=== PATIENT | male | born 1955 | race Caucasian/White ===

== ENCOUNTER 2017-02-16 21:07 | Emergency (ER) | payer SELFPAY ==
[~2017-02-16] VITALS: Ht 177.8 cm; Wt 68.0 kg
[~2017-02-16 21:07] MED LIST: CLON1TAB PO; CYCL10TA2 PO; Elavil PO; LEVE500T56 PO; OXYC-323 PO; QUET100T4 PO; [UNRECOGNIZED DRUG - OTHER]
[2017-02-16] MEDS ORDERED: ACETAMINOPHEN 325 MG TABLET. PO ONE (22:00)
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
[2017-02-16 23:28] VITALS: BP 155/81
--- NOTE | 2017-02-17 07:44 | RAD ---
Indication injury, pain. A single view of the chest was obtained. Comparison is made to a study December 16, 2013. The heart, pulmonary vessels and mediastinum appear normal. Lungs are clear. There is no pleural fluid or pneumothorax. The visualized bony structures appear grossly intact. IMPRESSION: Normal single view of the chest
== END 2017-02-16 23:44 | disposition home or self-care (01) ==
LOC: ER 21:07
DX: S06.0X1A Concussion with loss of consciousness of 30 minutes or less, initial encounter (principal); S20.219A Contusion of unspecified front wall of thorax, initial encounter; F31.9 Bipolar disorder, unspecified; G89.29 Other chronic pain; E11.9 Type 2 diabetes mellitus without complications; I10 Essential (primary) hypertension; F20.9 Schizophrenia, unspecified; F12.10 Cannabis abuse, uncomplicated; Z91.013 Allergy to seafood; Z88.5 Allergy status to narcotic agent; Y04.0XXA Assault by unarmed brawl or fight, initial encounter; Y93.89 Activity, other specified; Y92.89 Other specified places as the place of occurrence of the external cause; Y99.8 Other external cause status
CPT/HCPCS: 70450; 71010; 99284-25

== ENCOUNTER 2017-03-22 22:30 | Inpatient (IN) | payer SELFPAY ==
[~2017-03-22] VITALS: Ht 175.3 cm; Wt 61.2 kg
[~2017-03-22 22:30] MED LIST changes: +LIDOCAINE (700MG/PATCH) PATCH. TD ONE
[2017-03-23] MEDS ORDERED: ACETAMINOPHEN 325 MG TABLET. PO PRN ×2 (00:30→10:45)
[2017-03-23] MEDS ORDERED: ONDANSETRON PF 4 MG/2 ML VIAL. IV PRN ×2 (00:30→10:45)
[2017-03-23] MEDS ORDERED: KETOROLAC 15 MG/ML VIAL. IV PRN (00:30)
[2017-03-23 00:36] LABS: BASO # 0.1 x10^3/uL (0.0-0.2); BASO % 1 % (0-3); EOS % 2 % (0-3); HEMATOCRIT 45.6 % (39.0-53.0); HEMOGLOBIN 15.5 g/dL (13.0-17.5); LYMPH # 2.7 x10^3/uL (1.0-4.8); LYMPH % 34 % (24-48); MEAN CORPUSCULAR HEMOGLOBIN 34 pg (25-35); MEAN CORPUSCULAR HGB CONC 34 g/dL (31-37); MEAN CORPUSCULAR VOLUME 100 fL (79-100); MONO % 9 % (0-9); NEUT % 54 % (31-73); PLATELET COUNT 166 x10^3/uL (140-400); RED BLOOD COUNT 4.59 x10^6/uL (4.30-5.70); RED CELL DISTRIBUTION WIDTH 13.6 % (11.5-14.5); WHITE BLOOD COUNT 7.9 x10^3/uL (4.0-11.0)
[2017-03-23 00:46] LABS: CALCIUM 8.1 mg/dL (8.5-10.1); CREATININE 0.7 mg/dL (0.7-1.3); GFR 115.4; POTASSIUM 3.2 mmol/L (3.5-5.1)
[2017-03-23] MEDS ORDERED: MULTIVIT INFUSN,ADULT 4,VIT K 10 ML, THIAMINE 100 MG, FOLIC ACID 1 MG in IV NORMAL SALI... IV ONE (01:00)
[2017-03-23] MEDS: chlordiazePOXIDE HCL 25 MG CAPSULE PO SCH ×4 (01:17→20:05)
[2017-03-23] MEDS: fentaNYL PF VIAL 100 MCG/2 ML VIAL IV PRN ×2 (01:37→08:17)
--- NOTE | 2017-03-23 01:39 | ED.ADGEN ---
Past Medical History Past Medical History: Bipolar, Diabetes-Type II, Hypertension, Seizure, Schizophrenia, Other Additional Past Medical Histor: CHRONIC PAIN, DEGENERATIVE DISC DISEASE,hep c + schizoeffective,bipolar 2 Past Surgical History: Tonsillectomy Additional Past Surgical Histo: right arm fracture repair, borderline personality Alcohol Use: Occasionally Additional Information: DRANK X 3 BEERS TONIGHT Drug Use: Marijuana Adult General Chief Complaint Chief Complaint: GENERALIZED BODY ACHES HPI HPI Patient is a 61 year old man, history of type 2 diabetes mellitus, hepatitis C , schizoaffective disorder, who presents emergency Department with complaint of increasing shortness of breath and worsening left-sided rib pain. Patient states that he had a fall 3 days ago, and was evaluated in [place], and was told that he had 3 rib fractures. He states he was given Percocet for pain, but does use of this medication and is feeling worsens that occurred. He states he was also given incentive sprout through which he has not been using. Patient states that he has been drinking beer to alleviate his pain. He has an odor of alcohol, and examination is consistent with intoxication, although he is oriented 3, and is answering all questions appropriately. He denies any new injuries or complaints. States he is experiencing sharp shooting pain along the entire left side of his chest, worse with motion and with deep inspiration. Denies any cough, denies any fevers or chills. States he takes daily aspirin, no other blood thinners. He states he did take his blood pressure medication today for coming to the ED. Denies any other drugs or cigarettes. He states he does not drink daily, only drink today because he was having pain, states that he drank "2 beers". Review of Systems Review of Systems Constitutional: Denies fever or chills. [] Eyes: Denies change in visual acuity. [] HENT: Denies nasal congestion or sore throat. [] Respiratory: Denies cough, shortness of breath, left-sided chest pain. Cardiovascular: Left-sided chest pain, no edema. GI: Denies abdominal pain, nausea, vomiting, bloody stools or diarrhea. [] : Denies dysuria. [] Musculoskeletal: Denies back pain or joint pain. [] Integument: Denies rash. [] Neurologic: Denies headache, focal weakness or sensory changes. [] Endocrine: Denies polyuria or polydipsia. [] Lymphatic: Denies swollen glands. [] Psychiatric: Denies depression or anxiety. [] Current Medications Current Medications Current Medications Medications (Trade) Dose Ordered Sig/Niki Start Time Stop Time Status Last Admin Dose Admin Lidocaine (Lidoderm) 1 patch 1X ONCE 03/22/17 00:00 03/22/17 23:40 DC 03/23/17 00:03 1 PATCH Allergies Allergies Allergies Coded Allergies Type Severity Reaction Last Updated Verified codeine Allergy Intermediate 04/21/16 Yes shellfish derived Allergy Intermediate 04/21/16 Yes Physical Exam Physical Exam Constitutional: Well developed, well nourished, no acute distress, non-toxic appearance. [] HENT: Normocephalic, atraumatic, bilateral external ears normal, oropharynx moist, no oral exudates, nose normal. [] Eyes: PERRLA, EOMI, conjunctiva normal, no discharge. [] Neck: Normal range of motion, no tenderness, supple, no stridor. [] Cardiovascular:Heart rate regular rhythm, no murmur, S1, S2, rubs or gallops. [] Lungs & Thorax: Bilateral breath sounds clear to auscultation, no wheezing, rhonchi, rales. Patient with chest wall tenderness and crepitus noted in the left lateral rib cage, ribs 5 through 7, no flail chest, no sternal signs of trauma. [] Abdomen: Bowel sounds normal, soft, no tenderness, no rebound, rigidity, no guarding, no masses, no pulsatile masses. [] Skin: Warm, dry, no erythema, no rash. [] Back: No tenderness, no CVA tenderness. [] Extremities: No tenderness, no cyanosis, no clubbing, ROM intact, no edema. Negative Homans sign. [] Neurologic: Alert and oriented X 3, normal motor function, normal sensory function, no focal deficits noted. [] Psychologic: Affect normal, judgement normal, mood normal. [] Current Patient Data Vital Signs Vital Signs Date Time Temp Pulse Resp B/P Pulse Ox O2 Delivery O2 Flow Rate FiO2 03/22/17 23:38 104 20 134/97 96 Room Air 03/22/17 22:44 97.7 97.7 EKG EKG EC: Sinus tachycardia, heart rate 101 bpm, upright axis, QTC of 455, VT 164, QRS of 96, contour normality is noted in the anterior lateral leads, evidence of left ventricular hypertrophy noted, moderate baseline artifact noted , abnormal ECG, does not meet STEMI criteria. As interpreted by me. [] Radiology/Procedures Radiology/Procedures Chest x-ray: Left ribs and PA chest: Normal cardiopulmonary silhouette, no infiltrates, no effusions, no soft tissue abnormalities, no pneumothorax. Patient noted to have minimally displaced fractures of the lateral ribs 5,6 and 7 in the left chest. No other abnormalities identified. As interpreted by me. [] Course & Med Decision Making Course & Med Decision Making Pertinent Labs and Imaging studies reviewed. (See chart for details) Patient received Lidoderm patch in the emergency department, along with incentive spirometry instruction, banana bag, x-ray reveals minimally displaced rib fractures of ribs 5, 6, and 7 on the left. I did discuss these findings with patient, there is no signs of underlying lung damage. Patient states that he is unable to controls pain at home, as stated he is intoxicated in the emergency department, although he is answering question is appropriate, and do a safety concerns for the patient. After discussion, patient states that he would like to be admitted to the hospital for medical management of his pain. I did discuss findings as above with Dr. Gaun of internal medicine, patient accepted his service as a full admission to the medical surgical floor, plan for administration of analgesia, and evaluation by PT OT, incentive spirometry. Bridge orders entered per discussion. Patient transported to the medical surgical floor without issue. Dragon Disclaimer Dragon Disclaimer This electronic medical record was generated, in whole or in part, using a voice recognition dictation system. Departure Impression: Primary Impression: Multiple fractures of ribs of left side Additional Impressions: Intractable pain Alcohol intoxication Disposition: ADMITTED INPATIENT Admitting Physician: Kennedy Guan Condition: IMPROVED Problem Qualifiers ABY AYERS DO March 23, 2017 01:39
[2017-03-23 01:40] VITALS: BP 138/88
[2017-03-23] MEDS ORDERED: DEXTROSE 50% 25 GM / 50ML DISP.SYRIN. IV PRN (02:00)
--- NOTE | 2017-03-23 06:24 | ACF ---
Admission Forms Criteria RIB FRACTURE Clinical Indications for Admission to Inpatient Care (Place 'X' for any and all applicable criteria): Admission is indicated for ANY ONE of the following (1)(2)(3)(4): [X]I. 3 or more traumatic rib fractures [ ]II. Flail chest [A](5) [ ]III. Inpatient admission required rather than observation care (Also use Rib Fracture: Observation Care Criteria as appropriate) because of ANY ONE of the following: [ ]1) Pain inhibiting ability to cough or clear airway that is severe or persistent and requires inpatient treatment (eg, frequent parenteral narcotics) [ ]2) Injury (eg, intra-abdominal, vascular, neurologic, pneumothorax) identified that requires inpatient care [ ]3) Rib fracture causing exacerbation of comorbid illness that is severe or persistent (eg, COPD, congestive heart failure) [ ]4) Supplemental oxygen or respiratory treatments for over 24 hours that is performable only in acute inpatient setting [ ]5) Epidural analgesia (6) [ ]6) Immediate inpatient surgery [ ]7) Other condition, treatment or monitoring requiring inpatient admission Extended stay beyond goal length of stay may be needed for (Use Intensive, Intermediate and Telemetry Care Criteria) (1)(15) [ ]a) Flail chest [ ]b) Respiratory insufficiency [ ]c) Concomitant trauma to visceral or thoracic organs [ ]d) Need for chest tube drainage [ ]e) Reduced vital capacity (eg, less than 1.4 liters or 55% predicted) [ ]f) Active comorbidities The original [employer] content created by [employer] has been revised. The portions of the content which have been revised are identified through the use of italic text or in bold, and [facility] has neither reviewed nor approved the modified material. All other unmodified content is copyright [employer]. Please see references footnoted in the original [facility] edition 2016 Admission Criteria Met?: Yes HERO ISAAC March 23, 2017 06:24
--- NOTE | 2017-03-23 06:31 | EKG ---
[facility] [address] [place] [address] Test Date: 2017-03-23 Test Time: 00:29:14 Pat Name: GREG FOY Department: Room: 519 1 Gender: M [employer] Training Manager: : 1955 Requested By: ABY AYERS Order Number: [id number] Reading MD: Edouard Mei Measurements Intervals [place] Rate: 101 P: 64 OR: 164 QRS: 7 QRSD: 96 T: 31 QT: 350 QTc: 455 Interpretive Statements SINUS TACHYCARDIA Electronically Signed On 03-24-2017 11:36:40 CDT by Edouard Mei
[2017-03-23 07:00] VITALS: BP 139/87
--- NOTE | 2017-03-23 07:50 | RAD ---
Indication pain. An AP view of the chest was obtained as well as multiple films targeted to left ribs. The chest is compared to an examination 02/16/2017. The heart and pulmonary vessels appear normal. The lungs are clear of acute infiltrates. There is no pleural fluid or pneumothorax. Films targeted to left ribs demonstrate acute and traumatic slightly angulated fractures of the left sixth seventh and eighth ribs. IMPRESSION: Acute, traumatic, mildly angulated fractures of the left sixth, seventh and eighth ribs.
[2017-03-23] MEDS: INSULIN ASPART 300 UNITS/3 ML INSULN.PEN SQ SCH ×3 (08:07→17:00)
[2017-03-23] MEDS: LIDOCAINE (700MG/PATCH) PATCH. TD SCH (08:16)
[2017-03-23 11:00] VITALS: BP 142/92
[2017-03-23] MEDS: levETIRAcetam 500 MG TABLET PO SCH ×2 (11:22→21:29)
[2017-03-23] MEDS: clonazePAM 1 MG TABLET PO SCH ×2 (11:22→21:29)
[2017-03-23] MEDS: oxyCODONE/APAP 5/325 1 TAB TABLET PO PRN ×2 (11:22→20:05)
[2017-03-23] MEDS: CYCLOBENZAPRINE 10 MG TABLET. PO SCH ×2 (13:39→21:29)
[2017-03-23] MEDS ORDERED: MORPHINE SULFATE 2 MG/ML DISP.SYRIN. IV PRN (14:00)
[2017-03-23] MEDS ORDERED: oxyCODONE/APAP 10/325 1 TAB TABLET PO PRN (14:00)
--- NOTE | 2017-03-23 14:04 | PDOC1 ---
History and Physical Date of Admission Date of Admission 03/23/17 Identification/Chief Complaint Chief Complaint left chest pain Problems: Source Source: Chart review, Patient History of Present Illness History of Present Illness 61yo M, schizophrenia, alcoholism possibly, smoker, comes for left chest pain. He fell 2 days ago, went to a hosp in [place] and was found left side rib fx, dced from ER with percocet which helped him. He came here is because he ran out of pain meds and didnot call PCP otherwise no fever, chills, +mild cough makes chest pain worse. drank yesterday for the chest pain relieve. c/o left should pain now. can move left arm tho. Past Medical History Past Medical History al History: Bipolar, Diabetes-Type II, Hypertension, Seizure, Schizophrenia, Other Additional Past Medical Histor: CHRONIC PAIN, DEGENERATIVE DISC DISEASE,hep c + schizoeffective,bipolar 2 Past Surgical History: Tonsillectomy Cardiovascular: HTN Psych: Bipolar, Schizophrenia Endocrine: Diabetes Past Surgical History Past Surgical History Tonsillectomy Additional Past Surgical Histo: right arm fracture repair, borderline personality Family History Family History: No Significant Social History Smoke: <1 pack per day ALCOHOL: social Drugs: Marijuana Current Problem List Problem List Problems Medical Problems: (1) Alcohol intoxication Status: Acute (2) Intractable pain Status: Acute (3) Multiple fractures of ribs of left side Status: Acute Current Medications Current Medications Current Medications Medications (Trade) Dose Ordered Sig/Niki Start Time Stop Time Status Last Admin Dose Admin Acetaminophen (Tylenol) 650 mg PRN Q6HRS PRN 03/23/17 10:45 Acetaminophen 650 mg 650 mg PRN Q4HRS PRN 03/23/17 00:30 03/23/17 10:37 DC Chlordiazepoxide (Librium) 25 mg Q6H 03/23/17 01:00 03/24/17 07:01 03/23/17 13:39 25 MG Clonazepam (Klonopin) 1 mg BID 03/23/17 11:30 03/23/17 11:22 1 MG Cyclobenzaprine HCl (Flexeril) 10 mg TID 03/23/17 14:00 03/23/17 13:39 10 MG Dextrose (Dextrose 50%-Water Syringe) 12.5 gm PRN Q15MIN PRN 03/23/17 02:00 Fentanyl Citrate (Fentanyl 2ml Vial) 50 mcg PRN Q2HR PRN 03/23/17 00:30 03/24/17 00:29 03/23/17 08:17 50 MCG Insulin Aspart (Novolog) 0-5 UNITS TIDWMEALS 03/23/17 08:00 Ketorolac Tromethamine (Toradol) 10 mg PRN Q8HRS PRN 03/23/17 00:30 03/28/17 00:29 03/23/17 09:36 10 MG Levetiracetam (Keppra) 500 mg BID 03/23/17 11:00 03/23/17 11:22 500 MG Lidocaine (Lidoderm) 1 patch DAILY 03/23/17 09:00 03/23/17 08:16 1 PATCH Multivitamins/ Thiamine HCl/ Folic Acid/Sodium Chloride (Infuvite Adult/ Iv Sodium Chloride 0.9% 1000ml Bag) 1,011.2 ml @ 100 mls/ hr 1X ONCE 03/23/17 01:00 03/23/17 11:06 DC 03/23/17 01:17 100 MLS/HR Ondansetron HCl (Zofran) 4 mg PRN Q6HRS PRN 03/23/17 10:45 Oxycodone/ Acetaminophen (Percocet 5/325) 1 tab PRN Q6HRS PRN 03/23/17 10:45 03/23/17 11:22 1 TAB Allergies Allergies Allergies Coded Allergies Type Severity Reaction Last Updated Verified codeine Allergy Intermediate 04/21/16 Yes shellfish derived Allergy Intermediate 04/21/16 Yes Iodine and Iodide Containing Produc Allergy Unknown 03/23/17 Yes ROS Review of System CONSTITUTIONAL: No fever or chills EYES: No recent changes SKIN: No rash or itching CARDIOVASCULAR: No chest pain, syncope, palpitations, or edema RESPIRATORY: No SOB or cough GASTROINTESTINAL: No nausea, vomiting or abdominal pain NEUROLOGICAL: No headaches or weakness ENDOCRINE: No cold or heat intolerance GENITOURINARY: No urgency or frequency of urination MUSCULOSKELETAL: No back pain or joint pain LYMPHATICS: No enlarged lymph nodes PSYCHIATRIC: No anxiety or depression Physical Exam Physical Exam GEN.: No apparent distress. Alert and oriented. anxious HEENT: Head is normocephalic, atraumatic NECK: Supple. LUNGS: Clear to auscultation. left chest wall tenderness HEART: RRR, S1, S2 present. Peripheral pulses intact ABDOMEN: Soft, nontender. Positive bowel sounds. EXTREMITIES: Without any cyanosis. NEUROLOGIC: Normal speech, normal tone PSYCHIATRIC: Normal affect, normal mood. SKIN: No ulcerations Vitals Vitals Vital Signs Date Time Temp Pulse Resp B/P Pulse Ox O2 Delivery O2 Flow Rate FiO2 03/23/17 12:22 20 95 Room Air 03/23/17 11:00 97.5 88 142/92 97.5 Labs Labs Laboratory Tests Test 03/23/17 00:25 03/23/17 07:43 03/23/17 10:23 White Blood Count 7.9x10^3/uL (4.0-11.0) Red Blood Count 4.59x10^6/uL (4.30-5.70) Hemoglobin 15.5g/dL (13.0-17.5) Hematocrit 45.6% (39.0-53.0) Mean Corpuscular Volume 100fL (79-100) Mean Corpuscular Hemoglobin 34pg (25-35) Mean Corpuscular Hemoglobin Concent 34g/dL (31-37) Red Cell Distribution Width 13.6% (11.5-14.5) Platelet Count 166x10^3/uL (140-400) Neutrophils (%) (Auto) 54% (31-73) Lymphocytes (%) (Auto) 34% (24-48) Monocytes (%) (Auto) 9% (0-9) Eosinophils (%) (Auto) 2% (0-3) Basophils (%) (Auto) 1% (0-3) Neutrophils # (Auto) 4.3x10^3uL (1.8-7.7) Lymphocytes # (Auto) 2.7x10^3/uL (1.0-4.8) Monocytes # (Auto) 0.7x10^3/uL (0.0-1.1) Eosinophils # (Auto) 0.1x10^3/uL (0.0-0.7) Basophils # (Auto) 0.1x10^3/uL (0.0-0.2) Sodium Level 138mmol/L (136-145) Potassium Level 3.2mmol/L (3.5-5.1) Chloride Level 105mmol/L (98-107) Carbon Dioxide Level 22mmol/L (21-32) Anion Gap 11 (6-14) Blood Urea Nitrogen 13mg/dL (8-26) Creatinine 0.7mg/dL (0.7-1.3) Estimated GFR (Cockcroft-Gault) 115.4 Glucose Level 146mg/dL (70-99) Calcium Level 8.1mg/dL (8.5-10.1) Glucose (Fingerstick) 99mg/dL (70-99) 98mg/dL (70-99) Laboratory Tests Test 03/23/17 00:25 03/23/17 07:43 03/23/17 10:23 White Blood Count 7.9x10^3/uL (4.0-11.0) Red Blood Count 4.59x10^6/uL (4.30-5.70) Hemoglobin 15.5g/dL (13.0-17.5) Hematocrit 45.6% (39.0-53.0) Mean Corpuscular Volume 100fL (79-100) Mean Corpuscular Hemoglobin 34pg (25-35) Mean Corpuscular Hemoglobin Concent 34g/dL (31-37) Red Cell Distribution Width 13.6% (11.5-14.5) Platelet Count 166x10^3/uL (140-400) Neutrophils (%) (Auto) 54% (31-73) Lymphocytes (%) (Auto) 34% (24-48) Monocytes (%) (Auto) 9% (0-9) Eosinophils (%) (Auto) 2% (0-3) Basophils (%) (Auto) 1% (0-3) Neutrophils # (Auto) 4.3x10^3uL (1.8-7.7) Lymphocytes # (Auto) 2.7x10^3/uL (1.0-4.8) Monocytes # (Auto) 0.7x10^3/uL (0.0-1.1) Eosinophils # (Auto) 0.1x10^3/uL (0.0-0.7) Basophils # (Auto) 0.1x10^3/uL (0.0-0.2) Sodium Level 138mmol/L (136-145) Potassium Level 3.2mmol/L (3.5-5.1) Chloride Level 105mmol/L (98-107) Carbon Dioxide Level 22mmol/L (21-32) Anion Gap 11 (6-14) Blood Urea Nitrogen 13mg/dL (8-26) Creatinine 0.7mg/dL (0.7-1.3) Estimated GFR (Cockcroft-Gault) 115.4 Glucose Level 146mg/dL (70-99) Calcium Level 8.1mg/dL (8.5-10.1) Glucose (Fingerstick) 99mg/dL (70-99) 98mg/dL (70-99) VTE Prophylaxis Ordered VTE Prophylaxis Devices: Yes VTE Pharmacological Prophylaxi: Yes Assessment/Plan Assessment/Plan 1. left chest pain with traumatic left 6, 7, 8th rib fx from all 2. dm2 3. htn 4. h/o seizure 5. schizophrenia 6. bipolar 2 7. hypokalemia 8. drug abuse with marijuana plan: dr mccauley consult pain control with percocet cont home meds jaz Hernandez dc tmr check shoulder XR dvt ppx RAJIV PURCELL MD March 23, 2017 14:04
[2017-03-23 15:00] VITALS: BP 153/99
[2017-03-23] MEDS ORDERED: ENOXAPARIN 40 MG/0.4 ML SYRINGE. SQ SCH (15:00)
[2017-03-23] MEDS ORDERED: POTASSIUM CHLORIDE 20 MEQ TABLET.ER. PO ONE (15:45)
--- NOTE | 2017-03-23 15:58 | RAD ---
Indication pain associated with a fall. Internally and externally rotated views of the left shoulder were obtained as well as a Y view. No acute or significant bony finding is seen. There are some very mild degenerative changes at the AC joint.
[2017-03-23 19:45] VITALS: BP 142/96
[2017-03-23 23:59] VITALS: BP 149/94
[2017-03-24] MEDS: chlordiazePOXIDE HCL 25 MG CAPSULE PO SCH ×2 (00:10→05:52)
[2017-03-24] MEDS: oxyCODONE/APAP 5/325 1 TAB TABLET PO PRN (02:04)
[2017-03-24 03:15] VITALS: BP 146/89
--- NOTE | 2017-03-24 03:28 | CONS ---
DATE OF CONSULTATION: 03/23/2017 ATTENDING PHYSICIAN: Kennedy Guan DO The patient was seen at the request of Dr. Larsen for rehab evaluation. HISTORY OF PRESENT ILLNESS: This is a 61-year-old right-handed male with history of schizophrenia, chronic ethanol abuse, possibly smoker. 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 He was seen in a hospital in [place] where he was found with rib fractures and was discharged to home with Percocet 12 of them and he took about 1 every 4 hours and admitted to the Emergency Room at this medical center this morning. The patient is on disability. PAST MEDICAL AND SURGICAL HISTORY: The patient is also with known prediabetes, bipolar disorder, hypertension, seizure disorder, chronic pain from degenerative disk disease, hepatitis C positive, schizoaffective bipolar disorder, status post tonsillectomy. The patient also had surgery for right arm fracture. ALLERGIES: The patient is known ALLERGIC TO IODINE AND IODIDE-CONTAINING PRODUCTS, CODEINE, SHELLFISH DERIVED. SOCIAL HISTORY: The patient also has used alcoholic beverages socially, and since this injury, he has been drinking alcoholic beverages to control the pain and he also used marijuana in the past. He smokes less than 1 pack per day. IMAGING STUDIES: Since admission, he had chest x-ray and shoulder x-ray and rib cage x-rays, which revealed acute traumatic mildly angulated fractures of left 6th, 7th and 8th ribs and x-ray of the lungs failed to reveal any acute abnormality. X-ray of shoulder, left, revealed very mild degenerative changes at the AC joint. REVIEW OF SYSTEMS: The patient denies any tingling or numbness in the extremities. He admits some soreness over left side of his neck and upper back area. The patient denies any trouble with his bowel or bladder control. PHYSICAL EXAMINATION: Today revealed a middle-aged male. He is alert and oriented to time, place, person and circumstance and follows commands appropriately. He had pain-free range of motion of his cervical and lumbar spine. He had tenderness to palpation over left upper trapezius on the posterior shoulder girdle muscles and over left upper thoracic paraspinal muscles. He had 5/5 grade muscle strength in his extremities. Deep tendon reflexes are 1 to 2+ and symmetrical with absent right ankle jerks and he had equal perception of touch and pinprick sensation bilaterally. He is independent with bed mobility and transfers. He can even walk on his tiptoes, and he had some difficulty to try to walk on a straight line, one foot in front of the other. He had pain-free range of motion of all four extremity joints. He had some limitation of thoracic spine lateral bending to the right side. No significant paraspinal muscle spasm was noted at this time. No tenderness to palpation over cervical spine itself. ASSESSMENT: A middle-aged male with fall and sprained thoracic spine and left 6th, 7th and 8th ribs in a patient with known hypertension, prediabetes mellitus, schizophrenia, alcoholism, tobacco use, chronic pain from degenerative disk disease, hepatitis C positive, schizoaffective disorder. RECOMMENDATIONS: Agree with present pain medication and also used ice packs, home when medically stable with outpatient followup. Dr. Larsen, I appreciate asking me to participate in the care of this interesting patient. I will be glad to follow him with you as needed for his rehabilitation. TEETEE MITCHELL MD DR: ANN/douglas JOB#: [id number] / [id number]
[2017-03-24 04:26] LABS: CALCIUM 7.9 mg/dL (8.5-10.1); CREATININE 0.8 mg/dL (0.7-1.3); GFR 98.9; POTASSIUM 3.3 mmol/L (3.5-5.1)
[2017-03-24 04:28] LABS: BASO # 0.1 x10^3/uL (0.0-0.2); BASO % 1 % (0-3); EOS % 4 % (0-3); HEMATOCRIT 42.3 % (39.0-53.0); HEMOGLOBIN 14.4 g/dL (13.0-17.5); LYMPH # 2.5 x10^3/uL (1.0-4.8); LYMPH % 32 % (24-48); MEAN CORPUSCULAR HEMOGLOBIN 34 pg (25-35); MEAN CORPUSCULAR HGB CONC 34 g/dL (31-37); MEAN CORPUSCULAR VOLUME 99 fL (79-100); MONO % 12 % (0-9); NEUT % 51 % (31-73); PLATELET COUNT 127 x10^3/uL (140-400); RED BLOOD COUNT 4.27 x10^6/uL (4.30-5.70); RED CELL DISTRIBUTION WIDTH 13.1 % (11.5-14.5); WHITE BLOOD COUNT 7.9 x10^3/uL (4.0-11.0)
[2017-03-24 07:00] VITALS: BP 139/95
[2017-03-24] MEDS: INSULIN ASPART 300 UNITS/3 ML INSULN.PEN SQ SCH ×2 (08:00→11:27)
[2017-03-24] MEDS: levETIRAcetam 500 MG TABLET PO SCH (08:49)
[2017-03-24] MEDS: clonazePAM 1 MG TABLET PO SCH (08:49)
[2017-03-24] MEDS: CYCLOBENZAPRINE 10 MG TABLET. PO SCH (08:49)
[2017-03-24] MEDS: LIDOCAINE (700MG/PATCH) PATCH. TD SCH (08:50)
--- NOTE | 2017-03-24 09:12 | PDOC ---
PROGRESS NOTES Subjective Subjective He admits continued pain left upper back area. Objective Objective Vital Signs Date Time Temp Pulse Resp B/P Pulse Ox O2 Delivery O2 Flow Rate FiO2 03/24/17 08:00 Room Air 03/24/17 07:00 98.1 98 16 139/95 92 98.1 Intake and Output 03/24/17 07:00 Intake Total 1680 ml Output Total 5 ml Balance 1675 ml Intake Oral 1680 ml Output Urine Total 5 ml # Voids 1 Physical Exam Physical Exam He ia alert and moving all 4 extremities actively and continues with tenderness to palpation over left upper trapezius,other left posterior shoulder girdle and left upper thoracic paraspinal muscles and left mid rib cage area posteriorly. Assessment Assessment Problems Medical Problems: (1) Alcohol intoxication Status: Acute (2) Intractable pain Status: Acute (3) Multiple fractures of ribs of left side Status: Acute Plan Plan of [facility] when medically stable with home health follow up. Comment Review of Relevant I have reviewed the following items piper (where applicable) has been applied. Labs Laboratory Tests Test 03/23/17 00:25 03/23/17 07:43 03/23/17 10:23 03/23/17 16:49 White Blood Count 7.9x10^3/uL (4.0-11.0) Red Blood Count 4.59x10^6/uL (4.30-5.70) Hemoglobin 15.5g/dL (13.0-17.5) Hematocrit 45.6% (39.0-53.0) Mean Corpuscular Volume 100fL (79-100) Mean Corpuscular Hemoglobin 34pg (25-35) Mean Corpuscular Hemoglobin Concent 34g/dL (31-37) Red Cell Distribution Width 13.6% (11.5-14.5) Platelet Count 166x10^3/uL (140-400) Neutrophils (%) (Auto) 54% (31-73) Lymphocytes (%) (Auto) 34% (24-48) Monocytes (%) (Auto) 9% (0-9) Eosinophils (%) (Auto) 2% (0-3) Basophils (%) (Auto) 1% (0-3) Neutrophils # (Auto) 4.3x10^3uL (1.8-7.7) Lymphocytes # (Auto) 2.7x10^3/uL (1.0-4.8) Monocytes # (Auto) 0.7x10^3/uL (0.0-1.1) Eosinophils # (Auto) 0.1x10^3/uL (0.0-0.7) Basophils # (Auto) 0.1x10^3/uL (0.0-0.2) Sodium Level 138mmol/L (136-145) Potassium Level 3.2mmol/L (3.5-5.1) Chloride Level 105mmol/L (98-107) Carbon Dioxide Level 22mmol/L (21-32) Anion Gap 11 (6-14) Blood Urea Nitrogen 13mg/dL (8-26) Creatinine 0.7mg/dL (0.7-1.3) Estimated GFR (Cockcroft-Gault) 115.4 Glucose Level 146mg/dL (70-99) Calcium Level 8.1mg/dL (8.5-10.1) Glucose (Fingerstick) 99mg/dL (70-99) 98mg/dL (70-99) 117mg/dL (70-99) Test 03/24/17 03:25 03/24/17 07:35 White Blood Count 7.9x10^3/uL (4.0-11.0) Red Blood Count 4.27x10^6/uL (4.30-5.70) Hemoglobin 14.4g/dL (13.0-17.5) Hematocrit 42.3% (39.0-53.0) Mean Corpuscular Volume 99fL (79-100) Mean Corpuscular Hemoglobin 34pg (25-35) Mean Corpuscular Hemoglobin Concent 34g/dL (31-37) Red Cell Distribution Width 13.1% (11.5-14.5) Platelet Count 127x10^3/uL (140-400) Neutrophils (%) (Auto) 51% (31-73) Lymphocytes (%) (Auto) 32% (24-48) Monocytes (%) (Auto) 12% (0-9) Eosinophils (%) (Auto) 4% (0-3) Basophils (%) (Auto) 1% (0-3) Neutrophils # (Auto) 4.0x10^3uL (1.8-7.7) Lymphocytes # (Auto) 2.5x10^3/uL (1.0-4.8) Monocytes # (Auto) 1.0x10^3/uL (0.0-1.1) Eosinophils # (Auto) 0.3x10^3/uL (0.0-0.7) Basophils # (Auto) 0.1x10^3/uL (0.0-0.2) Sodium Level 136mmol/L (136-145) Potassium Level 3.3mmol/L (3.5-5.1) Chloride Level 104mmol/L (98-107) Carbon Dioxide Level 28mmol/L (21-32) Anion Gap 4 (6-14) Blood Urea Nitrogen 14mg/dL (8-26) Creatinine 0.8mg/dL (0.7-1.3) Estimated GFR (Cockcroft-Gault) 98.9 Glucose Level 95mg/dL (70-99) Calcium Level 7.9mg/dL (8.5-10.1) Glucose (Fingerstick) 96mg/dL (70-99) Laboratory Tests Test 03/23/17 10:23 03/23/17 16:49 03/24/17 03:25 03/24/17 07:35 Glucose (Fingerstick) 98mg/dL (70-99) 117mg/dL (70-99) 96mg/dL (70-99) White Blood Count 7.9x10^3/uL (4.0-11.0) Red Blood Count 4.27x10^6/uL (4.30-5.70) Hemoglobin 14.4g/dL (13.0-17.5) Hematocrit 42.3% (39.0-53.0) Mean Corpuscular Volume 99fL (79-100) Mean Corpuscular Hemoglobin 34pg (25-35) Mean Corpuscular Hemoglobin Concent 34g/dL (31-37) Red Cell Distribution Width 13.1% (11.5-14.5) Platelet Count 127x10^3/uL (140-400) Neutrophils (%) (Auto) 51% (31-73) Lymphocytes (%) (Auto) 32% (24-48) Monocytes (%) (Auto) 12% (0-9) Eosinophils (%) (Auto) 4% (0-3) Basophils (%) (Auto) 1% (0-3) Neutrophils # (Auto) 4.0x10^3uL (1.8-7.7) Lymphocytes # (Auto) 2.5x10^3/uL (1.0-4.8) Monocytes # (Auto) 1.0x10^3/uL (0.0-1.1) Eosinophils # (Auto) 0.3x10^3/uL (0.0-0.7) Basophils # (Auto) 0.1x10^3/uL (0.0-0.2) Sodium Level 136mmol/L (136-145) Potassium Level 3.3mmol/L (3.5-5.1) Chloride Level 104mmol/L (98-107) Carbon Dioxide Level 28mmol/L (21-32) Anion Gap 4 (6-14) Blood Urea Nitrogen 14mg/dL (8-26) Creatinine 0.8mg/dL (0.7-1.3) Estimated GFR (Cockcroft-Gault) 98.9 Glucose Level 95mg/dL (70-99) Calcium Level 7.9mg/dL (8.5-10.1) Medications Current Medications Lidocaine (Lidoderm) 1 patch 1X ONCE TD Last administered on 03/23/17 00:03; Start 03/22/17 at 00:00; Stop 03/22/17 at 23:40; Status DC Ondansetron HCl (Zofran) 4 mg PRN Q8HRS PRN IV NAUSEA/VOMITING; Start 03/23/17 at 00:30; Stop 03/24/17 at 00:29; Status DC Fentanyl Citrate (Fentanyl 2ml Vial) 50 mcg PRN Q2HR PRN IV SEVERE PAIN Last administered on 03/23/17 08:17; Start 03/23/17 at 00:30; Stop 03/24/17 at 00:29; Status DC Acetaminophen 650 mg 650 mg PRN Q4HRS PRN PO FEVER; Start 03/23/17 at 00:30; Stop 03/23/17 at 10:37; Status DC Multivitamins/ Thiamine HCl/ Folic Acid/Sodium Chloride (Infuvite Adult/ Iv Sodium Chloride 0.9% 1000ml Bag) 1,011.2 ml @ 100 mls/ hr 1X ONCE IV Last administered on 03/23/17 01:17; Start 03/23/17 at 01:00; Stop 03/23/17 at 11:06; Status DC Chlordiazepoxide (Librium) 25 mg Q6H PO Last administered on 03/24/17 05:52; Start 03/23/17 at 01:00; Stop 03/24/17 at 07:01; Status DC Lidocaine (Lidoderm) 1 patch DAILY TD Last administered on 03/24/17 08:50; Start 03/23/17 at 09:00 Ketorolac Tromethamine (Toradol) 10 mg PRN Q8HRS PRN IV MODERATE PAIN Last administered on 03/23/17 09:36; Start 03/23/17 at 00:30; Stop 03/28/17 at 00:29 Insulin Aspart (Novolog) 0-5 UNITS TIDWMEALS SQ ; Start 03/23/17 at 08:00 Dextrose (Dextrose 50%-Water Syringe) 12.5 gm PRN Q15MIN PRN IV SEE COMMENTS; Start 03/23/17 at 02:00 Clonazepam (Klonopin) 1 mg BID PO Last administered on 03/24/17 08:49; Start at 11:30 Cyclobenzaprine HCl (Flexeril) 10 mg TID PO Last administered on 03/24/17 08:49 ; Start 03/23/17 at 14:00 Levetiracetam (Keppra) 500 mg BID PO Last administered on 03/24/17 08:49; Start 03/23/17 at 11:00 Oxycodone/ Acetaminophen (Percocet 5/325) 1 tab PRN Q6HRS PRN PO PAIN Last administered on 03/24/17 02:04; Start 03/23/17 at 10:45 Acetaminophen (Tylenol) 650 mg PRN Q6HRS PRN PO FEVER; Start 03/23/17 at 10:45 Ondansetron HCl (Zofran) 4 mg PRN Q6HRS PRN IV NAUSEA/VOMITING; Start 03/23/17 at 10:45 Morphine Sulfate 2 mg PRN Q2HR PRN IV PAIN; Start 03/23/17 at 14:00 Lorazepam (Ativan) 2 mg PRN Q4HRS PRN IV ANXIETY / AGITATION; Start 03/23/17 at 14:00 Oxycodone/ Acetaminophen (Percocet 10/325) 1 tab PRN Q6HRS PRN PO PAIN; Start 03/23/17 at 14:00 Enoxaparin Sodium (Lovenox 40mg Syringe) 40 mg Q24H SQ Last administered on 03/23 14:37; Start 03/23/17 at 15:00 Potassium Chloride (Klor-Con) 40 meq 1X ONCE PO Last administered on 03/23/17 16:45; Start 03/23/17 at 15:45; Stop 03/23/17 at 15:46; Status DC Potassium Chloride (Klor-Con) 40 meq 1X ONCE PO Last administered on 03/24/17 09:00; Start 03/24/17 at 09:30; Stop 03/24/17 at 09:31 Active Scripts Active Cyclobenzaprine Hcl 10 Mg Tablet 10 Mg PO TID Reported [Oz] Klonopin (Clonazepam) 1 Mg Tablet 1 Mg PO BID Percocet 5-325 Mg Tablet (Oxycodone/Acetaminophen) 1 Each Tablet 1 Each PO Keppra (Levetiracetam) 500 Mg Tablet 500 Mg PO BID Vitals/I & O Vital Sign - Last 24 Hours 03/23/17 03/23/17 03/23/17 03/23/17 11:00 11:22 15:00 19:45 Temp 97.5 96.5 98.0 97.5 96.5 98.0 Pulse 88 90 85 Resp 18 20 18 20 B/P 142/92 153/99 142/96 Pulse Ox 97 95 97 90 O2 Delivery Room Air Room Air Room Air Room Air 03/23/17 03/23/17 03/23/17 03/24/17 20:00 20:05 23:59 02:04 Temp 97.9 97.9 Pulse 93 Resp 18 20 20 B/P 149/94 Pulse Ox 91 91 O2 Delivery Room Air Room Air Room Air Room Air 03/24/17 03/24/17 03/24/17 03/24/17 03:15 03:48 07:00 08:00 Temp 98.0 98.1 98.0 98.1 Pulse 89 98 Resp 18 18 16 B/P 146/89 139/95 Pulse Ox 92 91 92 O2 Delivery Room Air Room Air Room Air Room Air Intake and Output 03/23/17 03/23/17 03/24/17 15:00 23:00 07:00 Intake Total 440 ml 1000 ml 240 ml Output Total 5 ml Balance 440 ml 995 ml 240 ml TEETEE MITCHELL MD March 24, 2017 09:11
[2017-03-24] MEDS ORDERED: POTASSIUM CHLORIDE 20 MEQ TABLET.ER. PO ONE (09:30)
[2017-03-24] MEDS ORDERED: OXYC-323 PO (10:03)
--- NOTE | 2017-03-24 12:59 | PDOC3 ---
Discharge Summary [facility] Date of Admission: March 23, 2017 Discharge Date: March 24, 2017 Admitting Diagnosis 1. left chest pain with traumatic left 6, 7, 8th rib fx from all 2. dm2 3. htn 4. h/o seizure 5. schizophrenia 6. bipolar 2 7. hypokalemia 8. drug abuse with marijuana Problems: Final Diagnosis CONSULTS dr. saeed Brief Hospital Course 61yo M, schizophrenia, alcoholism possibly, smoker, comes for left chest pain. He fell 2 days ago, went to a hosp in [place] and was found left side rib fx, dced from ER with percocet which helped him. He came here is because he ran out of pain meds and didnot call PCP otherwise no fever, chills, +mild cough makes chest pain worse. drank yesterday for the chest pain relieve. c/o left should pain now. can move left arm tho. Shoulder XR neg. dr. Saeed consulted, no intervention dc with percocet 5/325 20pills. dc time 35min GEN.: No apparent distress. Alert and oriented. anxious HEENT: Head is normocephalic, atraumatic NECK: Supple. LUNGS: Clear to auscultation. left chest wall tenderness HEART: RRR, S1, S2 present. Peripheral pulses intact ABDOMEN: Soft, nontender. Positive bowel sounds. EXTREMITIES: Without any cyanosis. NEUROLOGIC: Normal speech, normal tone PSYCHIATRIC: Normal affect, normal mood. SKIN: No ulcerations Patient History: FH: ovarian cancer G8 SISTER Family history: Diabetes mellitus (situation) 33 FATHER Problems: Disposition home CONDITION AT DISCHARGE: Improved Diet regular Scheduled Clonazepam (Klonopin) 1 MG PO BID (Reported) Cyclobenzaprine Hcl (Cyclobenzaprine Hcl) 10 MG PO TID Levetiracetam (Keppra) 500 MG PO BID (Reported) Scheduled PRN Oxycodone/Apap 5-325 (Percocet 5-325 Mg Tablet) 1 EACH PO PRN Q6HRS PRN PRN PAIN Discontinued Medications ([Oz]) (Reported) Follow Up pcp next week RAJIV PURCELL MD March 24, 2017 12:59
[2017-03-25] MEDS ORDERED: LEVO500T38 PO (02:07)
== END 2017-03-24 11:48 | disposition home or self-care (01) | DRG 184 ==
LOC: ER 22:30 → 5 NORTH 03-23 00:17
PROVIDERS: ADMIT Internal Medicine; ATTEND Internal Medicine
DX: S22.42XA Multiple fractures of ribs, left side, initial encounter for closed fracture (principal); F31.81 Bipolar II disorder; F25.9 Schizoaffective disorder, unspecified; I10 Essential (primary) hypertension; E87.6 Hypokalemia; F10.229 Alcohol dependence with intoxication, unspecified; F12.10 Cannabis abuse, uncomplicated; F17.210 Nicotine dependence, cigarettes, uncomplicated; W19.XXXA Unspecified fall, initial encounter; E11.9 Type 2 diabetes mellitus without complications; F60.3 Borderline personality disorder; G40.909 Epilepsy, unspecified, not intractable, without status epilepticus; G89.29 Other chronic pain; M51.34 Other intervertebral disc degeneration, thoracic region; Z79.82 Long term (current) use of aspirin; Y92.89 Other specified places as the place of occurrence of the external cause; Y93.89 Activity, other specified; Z83.3 Family history of diabetes mellitus; Z88.6 Allergy status to analgesic agent; Z91.041 Radiographic dye allergy status; Z91.013 Allergy to seafood
CPT/HCPCS: 36415; 71101; 73030; 80048; 82947; 85027; 93005; J1650; J1815; J1885; J3010; J7030; 99285-25

== ENCOUNTER 2017-03-25 00:30 | Emergency (ER) | payer SELFPAY ==
[~2017-03-25 00:30] MED LIST changes: -LIDOCAINE (700MG/PATCH) PATCH. TD ONE
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
[2017-03-25] MEDS ORDERED: oxyCODONE/APAP 5/325 1 TAB TABLET PO ONE (01:00)
[2017-03-25] MEDS ORDERED: KETOROLAC TROMETHAMINE 60 MG/2 ML INJ. IM ONE (01:00)
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
[2017-03-25] MEDS ORDERED: LEVO500T38 PO (02:07)
[2017-03-25 02:10] VITALS: BP 156/87
--- NOTE | 2017-03-26 06:17 | EKG ---
[facility] [address] [place] [address] Test Date: 2017-03-25 Test Time: 17:39:06 Pat Name: GREG FOY Department: Room: Gender: M Lap Hand Tool: : 1955 Requested By: GARRISON HALL Order Number: [id number] Reading MD: Rosemary Weeks Measurements Intervals [place] Rate: 107 P: 26 MN: 138 QRS: 15 QRSD: 88 T: 42 QT: 330 QTc: 446 Interpretive Statements SINUS TACHYCARDIA LEFT ATRIAL ABNORMALITY QRS(T) CONTOUR ABNORMALITY CONSIDER ANTEROLATERAL MYOCARDIAL DAMAGE PROBABLY OLD Electronically Signed On 03-28-2017 17:43:19 CDT by Rosemary Weeks
== END 2017-03-25 02:15 | disposition home or self-care (01) ==
LOC: ER 00:30
DX: R10.9 Unspecified abdominal pain (principal); S22.42XD Multiple fractures of ribs, left side, subsequent encounter for fracture with routine healing; J18.9 Pneumonia, unspecified organism; G89.29 Other chronic pain; F20.9 Schizophrenia, unspecified; E11.9 Type 2 diabetes mellitus without complications; F12.10 Cannabis abuse, uncomplicated; F31.9 Bipolar disorder, unspecified; I10 Essential (primary) hypertension; Z91.041 Radiographic dye allergy status; Z88.5 Allergy status to narcotic agent; Z91.013 Allergy to seafood; Y00.XXXA Assault by blunt object, initial encounter; Y93.89 Activity, other specified; Y92.89 Other specified places as the place of occurrence of the external cause; Y99.8 Other external cause status
CPT/HCPCS: 71250; 74176; 93005; 96372; 99284; J1885

== ENCOUNTER 2017-03-25 17:38 | Observation (INO) | payer SELFPAY ==
[~2017-03-25] VITALS: Ht 175.3 cm; Wt 64.6 kg
[~2017-03-25 17:38] MED LIST changes: +LEVO500T38 PO
--- NOTE | 2017-03-25 17:39 | PHYS DOC ---
Past Medical History Past Medical History: Bipolar, Diabetes-Type II, Hypertension, Seizure, Schizophrenia, Other Additional Past Medical Histor: CHRONIC PAIN, DEGENERATIVE DISC DISEASE,hep c + schizoeffective,bipolar 2 Past Surgical History: Tonsillectomy Additional Past Surgical Histo: right arm fracture repair, borderline personality Alcohol Use: Heavy Drug Use: Marijuana Adult General Chief Complaint Chief Complaint: ALCOHOL INTOXICATION HPI HPI Patient is a 61 year old male who presents with intoxication. He states he's drank 1-12 ounce beer today. He denies any nausea vomiting fevers chills or abdominal pain. Review of Systems Review of Systems Constitutional: Denies fever or chills [] Eyes: Denies change in visual acuity, redness, or eye pain [] HENT: Denies nasal congestion or sore throat [] Respiratory: Denies cough or shortness of breath [] Cardiovascular: No additional information not addressed in HPI [] GI: Denies abdominal pain, nausea, vomiting, bloody stools or diarrhea [] : Denies dysuria or hematuria [] Musculoskeletal: Denies back pain or joint pain [] Integument: Denies rash or skin lesions [] Neurologic: Denies headache, focal weakness or sensory changes [] Endocrine: Denies polyuria or polydipsia [] Current Medications Current Medications Current Medications Medications (Trade) Dose Ordered Sig/Niki Start Time Stop Time Status Last Admin Dose Admin Sodium Chloride 1,000 ml @ 1,000 mls/hr 1X ONCE 03/25/17 18:00 03/25/17 18:59 DC 03/25/17 19:05 1,000 MLS/HR Allergies Allergies Allergies Coded Allergies Type Severity Reaction Last Updated Verified codeine Allergy Intermediate 04/21/16 Yes shellfish derived Allergy Intermediate 04/21/16 Yes Iodine and Iodide Containing Produc Allergy Unknown 03/23/17 Yes Physical Exam Physical Exam Constitutional: Well developed, well nourished, no acute distress, non-toxic appearance. [] HENT: Normocephalic, atraumatic, bilateral external ears normal, oropharynx moist, no oral exudates, nose normal. [] Eyes: PERRLA, EOMI, conjunctiva normal, no discharge. [] Neck: Normal range of motion, no tenderness, supple, no stridor. [] Cardiovascular:Heart rate regular rhythm, no murmur [] Lungs & Thorax: Bilateral breath sounds clear to auscultation [] Abdomen: Bowel sounds normal, soft, no tenderness, no masses, no pulsatile masses. [] Skin: Warm, dry, no erythema, no rash. [] Back: No tenderness, no CVA tenderness. [] Extremities: No tenderness, no cyanosis, no clubbing, ROM intact, no edema. [] Neurologic: Alert and oriented X 3, normal motor function, normal sensory function, no focal deficits noted. [] Psychologic: Affect normal, judgement normal, mood normal. [] Current Patient Data Vital Signs Vital Signs Date Time Temp Pulse Resp B/P (MAP) Pulse Ox O2 Delivery O2 Flow Rate FiO2 03/25/17 17:43 98.2 104 12 151/95 (113) 95 Room Air 98.2 Lab Values Laboratory Tests Test 03/25/17 18:42 03/25/17 19:02 White Blood Count 7.9 x10^3/uL (4.0-11.0) Red Blood Count 4.25 x10^6/uL (4.30-5.70) L Hemoglobin 14.2 g/dL (13.0-17.5) Hematocrit 42.3 % (39.0-53.0) Mean Corpuscular Volume 99 fL (79-100) Mean Corpuscular Hemoglobin 33 pg (25-35) Mean Corpuscular Hemoglobin Concent 34 g/dL (31-37) Red Cell Distribution Width 13.5 % (11.5-14.5) Platelet Count 134 x10^3/uL (140-400) L Neutrophils (%) (Auto) 55 % (31-73) Lymphocytes (%) (Auto) 33 % (24-48) Monocytes (%) (Auto) 10 % (0-9) H Eosinophils (%) (Auto) 2 % (0-3) Basophils (%) (Auto) 1 % (0-3) Neutrophils # (Auto) 4.3 x10^3uL (1.8-7.7) Lymphocytes # (Auto) 2.6 x10^3/uL (1.0-4.8) Monocytes # (Auto) 0.8 x10^3/uL (0.0-1.1) Eosinophils # (Auto) 0.1 x10^3/uL (0.0-0.7) Basophils # (Auto) 0.0 x10^3/uL (0.0-0.2) Sodium Level 140 mmol/L (136-145) Potassium Level 3.5 mmol/L (3.5-5.1) Chloride Level 105 mmol/L (98-107) Carbon Dioxide Level 27 mmol/L (21-32) Anion Gap 8 (6-14) Blood Urea Nitrogen 14 mg/dL (8-26) Creatinine 0.9 mg/dL (0.7-1.3) Estimated GFR (Cockcroft-Gault) 86.4 BUN/Creatinine Ratio 16 (6-20) Glucose Level 109 mg/dL (70-99) H Calcium Level 8.7 mg/dL (8.5-10.1) Total Bilirubin 1.2 mg/dL (0.2-1.0) H Aspartate Amino Transferase (AST) 49 U/L (15-37) H Alanine Aminotransferase (ALT) 58 U/L (16-63) Alkaline Phosphatase 128 U/L (46-116) H Total Protein 7.4 g/dL (6.4-8.2) Albumin 2.8 g/dL (3.4-5.0) L Albumin/Globulin Ratio 0.6 (1.0-1.7) L Salicylates Level < 2.8 mg/dL (2.8-20.0) L Salicylate Last Dose Date Unk Salicylate Last Dose Time Unk Acetaminophen Level < 10 mcg/ml (10-30) L Acetaminophen Last Dose Date Unk Acetaminophen Last Dose Time Unk Ethyl Alcohol Level < 10 mg/dL (0-10) Urine Opiates Screen Pos (NEG) Urine Methadone Screen Neg (NEG) Urine Barbiturates Neg (NEG) Urine Phencyclidine Screen Neg (NEG) Urine Amphetamine/Methamphetamine Pos (NEG) Urine Benzodiazepines Screen Pos (NEG) Urine Cocaine Screen Neg (NEG) Urine Cannabinoids Screen Neg (NEG) Urine Ethyl Alcohol Neg (NEG) Laboratory Tests 03/25/17 18:42 Laboratory Tests 03/25/17 18:42 EKG EKG EKG shows sinus tachycardia rate of 107 beats minute without any ST elevations or T-wave inversions, normal axis, QTC 4 and 46 ms, as interpreted by me. Radiology/Procedures Radiology/Procedures [facility] [address] [place] [address] IMAGING REPORT Signed PATIENT: GREG FOY ACCOUNT: [id number] : 1955 LOCATION: ER AGE: 61 SEX: M EXAM STATUS: REG ER ORD. PHYSICIAN: ELLIE BHATIA MD REASON: AMS PROCEDURE: CT HEAD AND CERVICAL SPINE WO PROCEDURE Noncontrast head CT Noncontrast cervical spine CT HISTORY Altered mental status. Neck pain. TECHNIQUE Noncontrast axial cross sectional CT scanning of the head was performed. Noncontrast helical CT scanning of the cervical spine was performed. Multiplanar 2D reconstructions were generated. One or more of the following individualized dose reduction techniques were utilized for this study: 1. Automated exposure control 2. Adjustment of the mA and/or kV according to patient size 3. Use of iterative reconstruction technique COMPARISON Head CT dated February 08, 2017. FINDINGS Head CT: No acute intracranial hemorrhage or midline shift or mass-effect or hydrocephalus or extra-axial fluid collection is seen. No new focal hypodense area or sulci effacement is seen to indicate an acute infarct or edema radiographically. No skull fracture or pneumocephalus is seen. No opacification of the mastoid sinuses or the paranasal sinuses is seen. The maxillary sinuses are not completely seen in this study. Cervical spine CT: No acute fracture is evident. No discitis or osteolytic process or anterolisthesis is seen. There is degenerative disc space narrowing and endplate spurring at C4-5 and C5-6 and C6-7. IMPRESSION Head CT: No acute intracranial abnormality is seen. Cervical spine CT: No acute fracture. Degenerative cervical spondylosis. Electronically signed by: Luna Schmitz MD (March 25, 2017 20:44:21) DICTATED and SIGNED BY: LUNA SCHMITZ MD DATE: 03/25/172043 CC: ELLIE BHATIA MD; UNKNOWN PCP NAME ~ Impressions: Altered mental status Course & Med Decision Making Course & Med Decision Making Pertinent Labs and Imaging studies reviewed. (See chart for details) Patient has multiple positives on his urine drug screen. He appears intoxicated. CT of his head and neck did not show acute abnormalities. He is very somnolent but will awake however I feel that he is not safe to be discharged home. He did receive IV fluids in the department. He is being admitted to the hospitalist in stable condition at this time. Dragon Disclaimer Dragon Disclaimer This electronic medical record was generated, in whole or in part, using a voice recognition dictation system. Departure Departure Impression: Primary Impression: Mental status alteration Disposition: ADMITTED INPATIENT Admitting Physician: Kaylyn Larsen Condition: STABLE Referrals: UNKNOWN PCP NAME (PCP) ELLIE BHATIA MD March 25, 2017 17:39
[2017-03-25] MEDS ORDERED: IV NORMAL SALINE 1000ML BAG 1,000 ML IV ONE ×2 (18:00)
--- NOTE | 2017-03-25 18:59 | ACF ---
Admission Forms Criteria SUBSTANCE ABUSE Clinical Indications for Admission to Inpatient Care (Place 'X' for any and all applicable criteria): Admission is indicated due to ANY ONE of the following(1)(2)(3)(4)(5): [ ]I. Delirium due to alcohol or sedative A withdrawal B ( Also use Delirium Criteria as appropriate)1,6,7 [ ]II. Alcohol or sedative withdrawal with high-risk indicator as manifested by ALL of the following1,3,6,7 [ ]a) Signs of withdrawal as indicated by ANY ONE of the following: [ ]i) Heart rate greater than 100 beats per minute [ ]ii) Nausea or vomiting [ ]iii) Other physical signs of alcohol or sedative withdrawal [ ]iv) Tremor [ ](v) Increased perspiration [ ]b) Elevated risk due to a historical or comorbid factor as indicated by ANY ONE of the following: [ ]i) History of delirium due to alcohol or sedative withdrawal [ ]ii) History of repetitive seizures due to alcohol or sedative withdrawal C [ ]iii) Intrinsic seizure disorder (epilepsy) [ ]iv) [ ]v) Comorbid medical condition that can be dangerously destabilized by alcohol or sedative withdrawal (eg, severe cardiac disease) [ ]III. Severe alcohol or sedative withdrawal that is unmanageable at lower level of care, as manifested by ALL of the following1,3,6,7 [ ]a) Marked signs of withdrawal as indicated by ANY ONE of the following: [ ]i) Heart rate greater than 120 beats per minute [ ]ii) Vomiting [ ]iii) Grossly visible tremor [ ]iv) Profuse perspiration [ ]v) Temperature greater than 38.3 degrees C (101 degrees F) [ ]vi) Other marked physical signs of alcohol or sedative withdrawal [ ]b) Signs of withdrawal which require inpatient treatment as indicated by ANY ONE of the following: [ ]i) Inadequate response to pharmacotherapy in emergency department or other appropriate lower level of care [ ]ii) Lower level of care not feasible or appropriate (eg, unavailable or inappropriate to patient condition or treatment history) [ ]IV. Severely complicated opioid withdrawal that requires [id number]-[id number] care as manifested by ALL of the following 1,4,7,11 [ ]a) Vomiting or diarrhea due to opioid withdrawal [ ]b) Marked dehydration or electrolyte abnormality that cannot be corrected (to near normal) in an emergency department or other ambulatory setting (eg, serum K<2.5 mEq/L , serum Na <130 mEq/L [X]V. Acute toxicity or instability from substance use requiring inpatient care (eg, altered mental status, respiratory depression) that has had inadequate response to, or is judged inappropriate for, treatment at lower level of care (eg, emergency department, observation care) [ ]. Other inpatient medical or psychiatric care is needed due to risk or comorbidity as indicated by ALL of the following(18): [ ]a) Treatment is needed because of patient risk due to ANY ONE of the following: [ ]i) Medical condition (eg, severe cardiac disease) that requires 24-hour monitoring and treatment due to danger of destabilization by alcohol or sedative withdrawal is present [ ]ii) Imminent danger to self is present due to ANY ONE of the following(19)(20)(21): [ ]1) Imminent risk for recurrence of Suicide attempt or act of serious Harm to self is present as indicated by ALL of the following: [ ]A. There has been very recent Suicide attempt or deliberate act of serious Harm to self. [ ]B. There has not been Sufficient relief of the factors that precipitated the attempt or act. [ ]2) Current plan for suicide or serious Harm to self is present. [ ]3) Command auditory hallucinations for suicide or serious Harm to self are present. [ ]4) Patient has persistent Thoughts of suicide or serious Harm to self that cannot be adequately monitored at lower level of care due to ANY ONE of the following[E]: [ ]A. Insufficient behavioral care is available to meet patient needs (such as required provider or lower level facility is not available). [ ]B. Patient characteristics such as high impulsivity or unreliability are present. [ ]C. Environment does not support recovery. [ ]D. Ready access to lethal means [ ]iii) Imminent danger to others is present due to ANY ONE of the following(19)(23)(24): [ ]1) Imminent risk for recurrence of attempt to seriously Harm another is present as indicated by ALL of the following: [ ]A. There has been very recent attempt to seriously Harm another. [ ]B. There has not been Sufficient relief of factors that precipitated the attempt or act. [ ]2) Current plan for homicide or serious Harm to another is present. [ ]3) Command auditory hallucinations or paranoid delusions contributing to risk for homicide or serious Harm to another are present. [ ]4) Patient has persistent thoughts of homicide or serious Harm to another that cannot be adequately monitored at lower level of care because of ANY ONE of the following[E]: [ ]A. Insufficient behavioral care is available to meet patient needs (such as required provider or lower level facility is not available). [ ]B. High impulsivity or unreliability is present. [ ]C. Environment does not support recovery. [ ]D. Ready access to lethal means [ ]iv) Severe dysfunction in daily living related to substance use disorder as indicated by ANY ONE of the following(33): [ ]a) Extreme deterioration in social interactions (eg , threatening behaviors with little or no provocation) [ ]b) Complete withdrawal from all social interactions [ ]c) Complete neglect of self-care with associated impairment in physical status [ ]d) Extreme disruption in vegetative function (eg, life-sustaining functions such as eating) [ ]e) Complete inability to maintain any appropriate aspect of personal responsibility in any adult roles (eg, occupational, parental ) [ ]v) Other emotional, behavioral, or cognitive symptoms of sufficient severity to preclude ability to engage in recovery without 24-hour monitoring and treatment are present. [ ]vi) Patient requires monitoring due to substance use in combination with medical, psychiatric, or environmental factors that prevent adequate management at lower level of care as indicated by ALL of the following: [ ]1) Significant substance use effects, medical conditions, or psychiatric comorbidities are present as indicated by ANY ONE of the following [ ]A. Substance toxicity or withdrawal requires medical monitoring. [ ]B. Medical comorbidity requires medical monitoring for destabilization due to alcohol or sedative withdrawal. [ ]C. Emotional, behavioral, or cognitive symptoms of sufficient severity to limit or preclude ability to engage in treatment are present. [ ]2) Conditions, barriers, or environmental factors preventing treatment at lower level of care are present as indicated by ANY ONE of the following: [ ]A. Psychiatric comorbidity or opposition to treatment requires 24-hour setting to ensure adherence with medical treatment or adequate motivating interventions. [ ]B. Severe behavioral problems (eg, escalating relapse behaviors, acute psychiatric or substance use crisis, inability to recognize signs and symptoms of relapse ) require 24-hour setting for relapse prevention.[F] [ ]C. Living environment outside of 24-hour setting prevents recovery (eg, abuse, victimization, patient inability to cope). [ ]b Treatment situation and needs are appropriate for inpatient level ( instead of using lower level of care) as indicated by ANY ONE of the following( 25)(26)(27): [ ]i) Patient is unwilling to participate voluntarily and requires treatment (eg, legal commitment) in involuntary unit.(23) [ ]ii) Voluntary treatment at lower level is not feasible (eg, lower level care unavailable or inappropriate for patient condition). [ ]iii) Physical restraint, seclusion, or other involuntary control is needed (eg, actively violent patient for whom treatment in an involuntary unit is deemed necessary in accord with applicable medical and legal criteria).(23) [ ]iv) Lrylym-gox-ujprq medical or nursing care to address symptoms and initiate interventions is required; specific need is identified. Extended stay beyond goal length of stay may be needed for: [ ]a) Onset of delirium [ ]b) Recurrent seizures [ ]c) Persistent severe alcohol or sedative withdrawal [ ]d) Persistent dangerous behavior The original [facility] content created by [employer] include [facility] has been revised. The portions of the content which have been revised are identified through the use of italic text or in bold, and [facility] has neither reviewed nor approved the modified material. All other unmodified content is copyright [facility]. Please see references footnoted in the original [facility] [employer] [facility] edition 2016 Admission Criteria Met?: Yes WARD BELTRE March 25, 2017 18:59
[2017-03-25 19:19] LABS: BASO % 1 % (0-3); CALCIUM 8.7 mg/dL (8.5-10.1); CREATININE 0.9 mg/dL (0.7-1.3); EOS % 2 % (0-3); GFR 86.4; HEMATOCRIT 42.3 % (39.0-53.0); HEMOGLOBIN 14.2 g/dL (13.0-17.5); LYMPH # 2.6 x10^3/uL (1.0-4.8); LYMPH % 33 % (24-48); MEAN CORPUSCULAR HEMOGLOBIN 33 pg (25-35); MEAN CORPUSCULAR HGB CONC 34 g/dL (31-37); MEAN CORPUSCULAR VOLUME 99 fL (79-100); MONO % 10 % (0-9); NEUT % 55 % (31-73); PLATELET COUNT 134 x10^3/uL (140-400); POTASSIUM 3.5 mmol/L (3.5-5.1); RED BLOOD COUNT 4.25 x10^6/uL (4.30-5.70); RED CELL DISTRIBUTION WIDTH 13.5 % (11.5-14.5); WHITE BLOOD COUNT 7.9 x10^3/uL (4.0-11.0)
[2017-03-25 19:24] LABS: BARBITURATES NEG (NEG); BENZODIAZEPINES POS (NEG); CANNABINOIDS NEG (NEG); COCAINE NEG (NEG); METHADONE NEG (NEG); OPIATES POS (NEG); PHENCYCLIDINE NEG (NEG)
[2017-03-25 19:24] LABS: ALBUMIN 2.8 g/dL (3.4-5.0); ALBUMIN/GLOBULIN RATIO 0.6 (1.0-1.7); TOTAL BILIRUBIN 1.2 mg/dL (0.2-1.0); TOTAL PROTEIN 7.4 g/dL (6.4-8.2)
--- NOTE | 2017-03-25 20:45 | RAD ---
PROCEDURE Noncontrast head CT Noncontrast cervical spine CT HISTORY Altered mental status. Neck pain. TECHNIQUE Noncontrast axial cross sectional CT scanning of the head was performed. Noncontrast helical CT scanning of the cervical spine was performed. Multiplanar 2D reconstructions were generated. One or more of the following individualized dose reduction techniques were utilized for this study: 1. Automated exposure control 2. Adjustment of the mA and/or kV according to patient size 3. Use of iterative reconstruction technique COMPARISON Head CT dated February 08, 2017. FINDINGS Head CT: No acute intracranial hemorrhage or midline shift or mass-effect or hydrocephalus or extra-axial fluid collection is seen. No new focal hypodense area or sulci effacement is seen to indicate an acute infarct or edema radiographically. No skull fracture or pneumocephalus is seen. No opacification of the mastoid sinuses or the paranasal sinuses is seen. The maxillary sinuses are not completely seen in this study. Cervical spine CT: No acute fracture is evident. No discitis or osteolytic process or anterolisthesis is seen. There is degenerative disc space narrowing and endplate spurring at C4-5 and C5-6 and C6-7. IMPRESSION Head CT: No acute intracranial abnormality is seen. Cervical spine CT: No acute fracture. Degenerative cervical spondylosis. Electronically signed by: Linus Schmitz MD (March 25, 2017 20:44:21)
[2017-03-25] MEDS ORDERED: ONDANSETRON PF 4 MG/2 ML VIAL. IV PRN (22:00)
[2017-03-25] MEDS ORDERED: IV DEXTROSE 5 %-0.45 % NACL 1,000 ML IV ONE (22:00)
--- NOTE | 2017-03-25 22:28 | ACF ---
Admission Forms Criteria SUBSTANCE ABUSE Clinical Indications for Admission to Inpatient Care (Place 'X' for any and all applicable criteria): Admission is indicated due to ANY ONE of the following(1)(2)(3)(4)(5): [ ]I. Delirium due to alcohol or sedative A withdrawal B ( Also use Delirium Criteria as appropriate)1,6,7 [ ]II. Alcohol or sedative withdrawal with high-risk indicator as manifested by ALL of the following1,3,6,7 [ ]a) Signs of withdrawal as indicated by ANY ONE of the following: [ ]i) Heart rate greater than 100 beats per minute [ ]ii) Nausea or vomiting [ ]iii) Other physical signs of alcohol or sedative withdrawal [ ]iv) Tremor [ ](v) Increased perspiration [ ]b) Elevated risk due to a historical or comorbid factor as indicated by ANY ONE of the following: [ ]i) History of delirium due to alcohol or sedative withdrawal [ ]ii) History of repetitive seizures due to alcohol or sedative withdrawal C [ ]iii) Intrinsic seizure disorder (epilepsy) [ ]iv) [ ]v) Comorbid medical condition that can be dangerously destabilized by alcohol or sedative withdrawal (eg, severe cardiac disease) [ ]III. Severe alcohol or sedative withdrawal that is unmanageable at lower level of care, as manifested by ALL of the following1,3,6,7 [ ]a) Marked signs of withdrawal as indicated by ANY ONE of the following: [ ]i) Heart rate greater than 120 beats per minute [ ]ii) Vomiting [ ]iii) Grossly visible tremor [ ]iv) Profuse perspiration [ ]v) Temperature greater than 38.3 degrees C (101 degrees F) [ ]vi) Other marked physical signs of alcohol or sedative withdrawal [ ]b) Signs of withdrawal which require inpatient treatment as indicated by ANY ONE of the following: [ ]i) Inadequate response to pharmacotherapy in emergency department or other appropriate lower level of care [ ]ii) Lower level of care not feasible or appropriate (eg, unavailable or inappropriate to patient condition or treatment history) [ ]IV. Severely complicated opioid withdrawal that requires [id number] care as manifested by ALL of the following 1,4,7,11 [ ]a) Vomiting or diarrhea due to opioid withdrawal [ ]b) Marked dehydration or electrolyte abnormality that cannot be corrected (to near normal) in an emergency department or other ambulatory setting (eg, serum K<2.5 mEq/L , serum Na <130 mEq/L [X]V. Acute toxicity or instability from substance use requiring inpatient care (eg, altered mental status, respiratory depression) that has had inadequate response to, or is judged inappropriate for, treatment at lower level of care (eg, emergency department, observation care) [ ]. Other inpatient medical or psychiatric care is needed due to risk or comorbidity as indicated by ALL of the following(18): [ ]a) Treatment is needed because of patient risk due to ANY ONE of the following: [ ]i) Medical condition (eg, severe cardiac disease) that requires 24-hour monitoring and treatment due to danger of destabilization by alcohol or sedative withdrawal is present [ ]ii) Imminent danger to self is present due to ANY ONE of the following(19)(20)(21): [ ]1) Imminent risk for recurrence of Suicide attempt or act of serious Harm to self is present as indicated by ALL of the following: [ ]A. There has been very recent Suicide attempt or deliberate act of serious Harm to self. [ ]B. There has not been Sufficient relief of the factors that precipitated the attempt or act. [ ]2) Current plan for suicide or serious Harm to self is present. [ ]3) Command auditory hallucinations for suicide or serious Harm to self are present. [ ]4) Patient has persistent Thoughts of suicide or serious Harm to self that cannot be adequately monitored at lower level of care due to ANY ONE of the following[E]: [ ]A. Insufficient behavioral care is available to meet patient needs (such as required provider or lower level facility is not available). [ ]B. Patient characteristics such as high impulsivity or unreliability are present. [ ]C. Environment does not support recovery. [ ]D. Ready access to lethal means [ ]iii) Imminent danger to others is present due to ANY ONE of the following(19)(23)(24): [ ]1) Imminent risk for recurrence of attempt to seriously Harm another is present as indicated by ALL of the following: [ ]A. There has been very recent attempt to seriously Harm another. [ ]B. There has not been Sufficient relief of factors that precipitated the attempt or act. [ ]2) Current plan for homicide or serious Harm to another is present. [ ]3) Command auditory hallucinations or paranoid delusions contributing to risk for homicide or serious Harm to another are present. [ ]4) Patient has persistent thoughts of homicide or serious Harm to another that cannot be adequately monitored at lower level of care because of ANY ONE of the following[E]: [ ]A. Insufficient behavioral care is available to meet patient needs (such as required provider or lower level facility is not available). [ ]B. High impulsivity or unreliability is present. [ ]C. Environment does not support recovery. [ ]D. Ready access to lethal means [ ]iv) Severe dysfunction in daily living related to substance use disorder as indicated by ANY ONE of the following(33): [ ]a) Extreme deterioration in social interactions (eg , threatening behaviors with little or no provocation) [ ]b) Complete withdrawal from all social interactions [ ]c) Complete neglect of self-care with associated impairment in physical status [ ]d) Extreme disruption in vegetative function (eg, life-sustaining functions such as eating) [ ]e) Complete inability to maintain any appropriate aspect of personal responsibility in any adult roles (eg, occupational, parental ) [ ]v) Other emotional, behavioral, or cognitive symptoms of sufficient severity to preclude ability to engage in recovery without 24-hour monitoring and treatment are present. [ ]vi) Patient requires monitoring due to substance use in combination with medical, psychiatric, or environmental factors that prevent adequate management at lower level of care as indicated by ALL of the following: [ ]1) Significant substance use effects, medical conditions, or psychiatric comorbidities are present as indicated by ANY ONE of the following [ ]A. Substance toxicity or withdrawal requires medical monitoring. [ ]B. Medical comorbidity requires medical monitoring for destabilization due to alcohol or sedative withdrawal. [ ]C. Emotional, behavioral, or cognitive symptoms of sufficient severity to limit or preclude ability to engage in treatment are present. [ ]2) Conditions, barriers, or environmental factors preventing treatment at lower level of care are present as indicated by ANY ONE of the following: [ ]A. Psychiatric comorbidity or opposition to treatment requires 24-hour setting to ensure adherence with medical treatment or adequate motivating interventions. [ ]B. Severe behavioral problems (eg, escalating relapse behaviors, acute psychiatric or substance use crisis, inability to recognize signs and symptoms of relapse ) require 24-hour setting for relapse prevention.[F] [ ]C. Living environment outside of 24-hour setting prevents recovery (eg, abuse, victimization, patient inability to cope). [ ]b Treatment situation and needs are appropriate for inpatient level ( instead of using lower level of care) as indicated by ANY ONE of the following( 25)(26)(27): [ ]i) Patient is unwilling to participate voluntarily and requires treatment (eg, legal commitment) in involuntary unit.(23) [ ]ii) Voluntary treatment at lower level is not feasible (eg, lower level care unavailable or inappropriate for patient condition). [ ]iii) Physical restraint, seclusion, or other involuntary control is needed (eg, actively violent patient for whom treatment in an involuntary unit is deemed necessary in accord with applicable medical and legal criteria).(23) [ ]iv) [id number] medical or nursing care to address symptoms and initiate interventions is required; specific need is identified. Extended stay beyond goal length of stay may be needed for: [ ]a) Onset of delirium [ ]b) Recurrent seizures [ ]c) Persistent severe alcohol or sedative withdrawal [ ]d) Persistent dangerous behavior The original [facility] content created by [employer] has been revised. The portions of the content which have been revised are identified through the use of italic text or in bold, and [facility] has neither reviewed nor approved the modified material. All other unmodified content is copyright [facility]. Please see references footnoted in the original [facility] [employer] edition 2016 Admission Criteria Met?: Yes ABIGAIL VALENCIA March 25, 2017 22:28
[2017-03-25 23:35] VITALS: BP 158/104
[2017-03-26 03:30] VITALS: BP 149/90
[2017-03-26 03:41] LABS: BASO % 1 % (0-3); EOS % 4 % (0-3); HEMATOCRIT 41.5 % (39.0-53.0); HEMOGLOBIN 13.8 g/dL (13.0-17.5); LYMPH # 2.9 x10^3/uL (1.0-4.8); LYMPH % 40 % (24-48); MEAN CORPUSCULAR HEMOGLOBIN 33 pg (25-35); MEAN CORPUSCULAR HGB CONC 33 g/dL (31-37); MEAN CORPUSCULAR VOLUME 100 fL (79-100); MONO % 12 % (0-9); NEUT % 43 % (31-73); PLATELET COUNT 132 x10^3/uL (140-400); RED BLOOD COUNT 4.17 x10^6/uL (4.30-5.70); RED CELL DISTRIBUTION WIDTH 13.3 % (11.5-14.5); WHITE BLOOD COUNT 7.2 x10^3/uL (4.0-11.0)
[2017-03-26 04:07] LABS: CALCIUM 7.8 mg/dL (8.5-10.1); CREATININE 0.7 mg/dL (0.7-1.3); GFR 115.4; POTASSIUM 3.3 mmol/L (3.5-5.1)
[2017-03-26] MEDS ORDERED: IBUPROFEN 400 MG TABLET. PO PRN ×2 (04:30→04:45)
[2017-03-26] MEDS ORDERED: ONDANSETRON PF 4 MG/2 ML VIAL. IV PRN (09:31)
[2017-03-26] MEDS ORDERED: oxyCODONE/APAP 5/325 1 TAB TABLET PO PRN (09:45)
[2017-03-26] MEDS ORDERED: chlordiazePOXIDE HCL 25 MG CAPSULE PO PRN (09:45)
[2017-03-26] MEDS ORDERED: clonazePAM 1 MG TABLET PO SCH (10:00)
[2017-03-26] MEDS ORDERED: CYCLOBENZAPRINE 10 MG TABLET. PO SCH (10:00)
[2017-03-26] MEDS ORDERED: levETIRAcetam 500 MG TABLET PO SCH (10:00)
[2017-03-26] MEDS ORDERED: MULTIVIT INFUSN,ADULT 4,VIT K 10 ML, FOLIC ACID 1 MG, THIAMINE 100 MG in IV DEXTROSE 5 ... IV SCH (11:00)
== END 2017-03-26 06:30 | disposition left against medical advice (07) ==
LOC: ER 17:58 → 6 SOUTH 21:30
PROVIDERS: ADMIT Internal Medicine; ATTEND Internal Medicine
DX: R41.82 Altered mental status, unspecified (principal); F31.81 Bipolar II disorder; E11.9 Type 2 diabetes mellitus without complications; F20.9 Schizophrenia, unspecified; I10 Essential (primary) hypertension; G89.29 Other chronic pain; F60.3 Borderline personality disorder; F12.90 Cannabis use, unspecified, uncomplicated; Z86.19 Personal history of other infectious and parasitic diseases
CPT/HCPCS: 36415; 70450; 72125; 80048; 80053; 82947; 85027; 96360; 96361; 99285; G0378; G0480; G0481; G6038; J7030; G0379; 80196

== ENCOUNTER 2017-03-28 21:55 | Emergency (ER) | payer SELFPAY ==
[~2017-03-28] VITALS: Ht 162.6 cm; Wt 64.4 kg
[2017-03-28 22:00] VITALS: BP 145/59
--- NOTE | 2017-03-28 22:35 | PHYS DOC ---
Past Medical History Past Medical History: Bipolar, Diabetes-Type II, Hypertension, Seizure, Schizophrenia, Other Additional Past Medical Histor: CHRONIC PAIN, DEGENERATIVE DISC DISEASE,hep c + schizoeffective,bipolar 2 Past Surgical History: Tonsillectomy Additional Past Surgical Histo: right arm fracture repair, borderline personality Alcohol Use: Heavy Drug Use: Marijuana Adult General Chief Complaint Chief Complaint: PSYCH EVALUATION HPI HPI Patient is a 61 year old gentleman with a history significant for bipolar affective disorder and schizoaffective disorder presents here today requesting assistance to getting to [facility] for evaluation. Put back on his Seroquel, Klonopin , and his other medications. Patient denies any history of coronary disease, diabetes, CHF, COPD. Patient has any longer kidney problems. Patient is a history of hepatitis C and borderline hypertension. Patient has any abdominal or surgical history the past. Patient reports he does smoke and he occasionally drinks as well as occasionally smokes marijuana. Patient has any fevers shakes chills nausea vomiting diarrhea chest pain shortness of breath. Patient does report a dry nonproductive cough. Patient denies any vomiting or diarrhea. Patient has any suicidal or homicidal ideations. Patient denies any auditory or visual hallucinations at this time. Patient's physical exam the ED was essentially unremarkable. He is alert awake oriented 3 and appropriate. Patient's heart was regular rhythm lungs are clear abdomen was benign. Patient's neuro exam revealed a GCS of 15. He is appropriate with his conversation. Denies any suicidal or homicidal ideations. A/P #1 bipolar affective disorder/schizoaffective disorder. Patient's clinically hemodynamically stable. Patient reports he is requesting to be transferred over to [facility] for further evaluation and get assistance with getting put back on his medications. Patient reports he stopped taking his medicines approximately once 2 weeks ago. Patient reports he feels slightly anxious. Patient's otherwise clinically hemodynamically stable. Patient be medically cleared for transfer over to [facility]. Review of Systems Review of Systems Constitutional: Denies fever or chills [] Eyes: Denies change in visual acuity, redness, or eye pain [] HENT: Denies nasal congestion or sore throat [] All other review systems are negative except as documented in the history of present illness portion. Allergies Allergies Allergies Coded Allergies Type Severity Reaction Last Updated Verified codeine Allergy Intermediate 03/26/17 Yes shellfish derived Allergy Intermediate 04/21/16 Yes Iodine and Iodide Containing Produc Allergy Unknown 03/23/17 Yes Physical Exam Physical Exam Constitutional: Well developed, well nourished, no acute distress, non-toxic appearance. [] HENT: Normocephalic, atraumatic, bilateral external ears normal, oropharynx moist, no oral exudates, nose normal. [] Eyes: PERRLA, EOMI, conjunctiva normal, no discharge. [] Neck: Normal range of motion, no tenderness, supple, no stridor. [] Cardiovascular:Heart rate regular rhythm, Lungs & Thorax: Bilateral breath sounds clear to auscultation [] Abdomen: Bowel sounds normal, soft, no tenderness, no masses, no pulsatile masses. [] Skin: Warm, dry, no erythema, no rash. [] Back: No tenderness, no CVA tenderness. [] Extremities: No tenderness, no cyanosis, no clubbing, ROM intact, no edema. [] Neurologic: Alert and oriented X 3, normal motor function, normal sensory function, no focal deficits noted. [] Psychologic: Affect normal, judgement normal, mood normal. [] Current Patient Data Vital Signs Vital Signs Date Time Temp Pulse Resp B/P (MAP) Pulse Ox O2 Delivery O2 Flow Rate FiO2 03/28/17 22:00 98.4 84 20 145/59 (87) 98 Room Air 98.4 EKG EKG [] Radiology/Procedures Radiology/Procedures [] Course & Med Decision Making Course & Med Decision Making Pertinent Labs and Imaging studies reviewed. (See chart for details) [] Dragon Disclaimer Dragon Disclaimer This electronic medical record was generated, in whole or in part, using a voice recognition dictation system. Departure Departure Impression: Primary Impression: Bipolar affective disorder Additional Impressions: Schizoaffective disorder Noncompliance Disposition: HOME, SELF-CARE Condition: STABLE Referrals: UNKNOWN PCP NAME (PCP) Patient Instructions: Manic Depression (Bipolar Disorder), Schizoaffective Disorder Additional Instructions: Go straight to RSI. Problem Qualifiers ROBERT ZIMMERMAN MD March 28, 2017 22:34
== END 2017-03-28 22:56 | disposition home or self-care (01) ==
LOC: ER 22:53
DX: F25.9 Schizoaffective disorder, unspecified (principal); F31.81 Bipolar II disorder; Z91.19 Patient's noncompliance with other medical treatment and regimen; I10 Essential (primary) hypertension; E11.9 Type 2 diabetes mellitus without complications; G89.29 Other chronic pain; Z86.19 Personal history of other infectious and parasitic diseases; F12.10 Cannabis abuse, uncomplicated; F10.10 Alcohol abuse, uncomplicated; Z88.5 Allergy status to narcotic agent; Z91.041 Radiographic dye allergy status; Z91.013 Allergy to seafood
CPT/HCPCS: 99284

== ENCOUNTER → 2017-08-12 | Outpatient (CLI) | payer OTHER ==
[~2017-08-12] MED LIST changes: -LEVO500T38 PO; +LEVO500T59 PO
--- NOTE | 2017-08-12 10:30 | KCIC ---
INDICATION: Elevated LFTs. TECHNIQUE: Right upper quadrant ultrasound was performed. No comparison is available. FINDINGS: Visualized pancreas is unremarkable. Aorta is normal caliber. IVC is not well visualized secondary to poor acoustic window. Liver is diffusely increased in echogenicity. There is no discrete hepatic lesion. Gallbladder is negative. Common bile duct is within normal limits at 3 mm. Right kidney is without hydronephrosis or mass. IMPRESSION: Fatty infiltration of the liver. Electronically signed by: Gabe Bowman MD (08/12/2017 10:27 AM) [id number]
--- NOTE | 2017-08-12 10:39 | KCIC ---
Indication: Chronic smoker, worsening shortness of air Technique: Axial images and coronal and sagittal reformatted images are provided. Comparison is from March 25, 2017. One or more of the following individualized dose reduction techniques were utilized for this examination: 1. Automated exposure control 2. Adjustment of the mA and/or kV according to patient size 3. Use of iterative reconstruction technique Findings: Pleural effusions noted previously have resolved. There is minimal dependent atelectasis on the left. There are calcified granulomas. There is no worrisome pulmonary nodule. Central airways are patent. There is minimal atheromatous disease in the thoracic aorta. The heart is not enlarged. There is no definite hilar or mediastinal adenopathy on this noncontrast study. There are degenerative changes in the spine. There are old left rib fractures. There is fatty infiltration of the liver. There are varices in the upper abdomen. There are mild degenerative changes in the spine with stable compression deformities. IMPRESSION: 1. No acute thoracic findings. 2. Upper abdominal varices. 3. Fatty infiltration of the liver. Electronically signed by: Gabe Bowman MD (08/12/2017 10:36 AM) [id number]
== END | disposition home or self-care (01) ==
LOC: KCIC US 09:20
PROVIDERS: ATTEND Family Medicine
DX: K76.0 Fatty (change of) liver, not elsewhere classified (principal); R79.89 Other specified abnormal findings of blood chemistry; Z87.891 Personal history of nicotine dependence
CPT/HCPCS: 71250; 76705